=== PATIENT | male | born 1945 ===

== ENCOUNTER 2025-04-04 13:51 | Observation (INO) ==
--- NOTE | 2025-04-04 15:02 | DR.WEAKNES ---
HPI Time Seen Time Seen by Provider: 04/04/25 15:00 Primary Care Physician Primary Care Physician: Dr. Dewey Aleman Complaints Chief Complaint Doctors Comments: 79 yo M, hx of parkinsons, brought in by and daughter after they noticed Pt limping and "dragging" his RLE throughout the day yest. Onset 31h [employer]. Pt states he didn't notice the deficit. Chief Complaint:: Pt's states that two days ago pt woke up with bilateral lower extremity weakness. Pt was able to participate in his outpatient physical therapy. Yesterday pt woke up with the smae weakness but was dragging his right leg. Pt's denies that pt has had any other deficits.Pt denies any pain. Source History Provided: Family Member Mode of Arrival Mode of Arrival: Ambulatory Timing Onset of Chief Complaint: 04/02/25 Symptom Onset: Known (upon waking yesterday morning) Context Stroke Symptoms: Weakness of limb (RLE) PMH PMH Past Medical History: Yes Past Medical History: Depression, Dialysis and Hypertension Past Medical History Comment: alzheimers, parkinsons Past Surgical History: Yes Surgical History: Other Past Surgical History Comment: prostates ablation, right shoulder surger Family History History of Family Medical Conditions: Yes Family Medical History: Diabetes Mellitus Family Medical History Comment: dementia Social History Does patient currently use any type of tobacco product: No Have you used tobacco products in the last 12 months: No Type of Tobacco Use: None Does any household member use tobacco: No Alcohol Use: DAILY Do you use any recreational Drugs:: No Lives With: Spouse Lives Where: Home Travel Risk Coronavirus risk:travel/contact w/high risk person: No Has patient experienced Coronavirus symptoms: No Infectious screening In the last 2 months have you had wt loss of >10#?: NO Have you had fever, night sweats or hemotysis?: No Have you traveled outside the country in the last 6 months?: No Isolation: Standard ROS Review of Systems Musculoskeletal: Other (RLE weakness) All Other Systems: Reviewed and Negative PE Vital Signs Vitals: Vital Signs Temperature 98.1 F Pulse Rate 54 Pulse Rate 53 Pulse Rate 53 Pulse Rate 52 Pulse Rate 53 Pulse Rate 53 Pulse Rate 50 Pulse Rate 58 Pulse Rate 58 Pulse Rate 57 Pulse Rate 54 Pulse Rate 56 Pulse Rate 66 Pulse Rate 58 Respiratory Rate 14 Respiratory Rate 12 Respiratory Rate 14 Respiratory Rate 14 Respiratory Rate 15 Respiratory Rate 14 Respiratory Rate 22 Respiratory Rate 28 Respiratory Rate 14 Respiratory Rate 14 Respiratory Rate 19 Respiratory Rate 18 Blood Pressure 182/82 Blood Pressure 151/74 Blood Pressure 150/76 Blood Pressure 163/77 Blood Pressure 158/77 Blood Pressure 172/81 Blood Pressure 172/77 Blood Pressure 141/74 Blood Pressure 153/72 Blood Pressure 148/64 Blood Pressure 154/69 Blood Pressure 163/74 O2 Sat by Pulse Oximetry 99 O2 Sat by Pulse Oximetry 100 O2 Sat by Pulse Oximetry 98 O2 Sat by Pulse Oximetry 99 O2 Sat by Pulse Oximetry 100 O2 Sat by Pulse Oximetry 100 O2 Sat by Pulse Oximetry 100 O2 Sat by Pulse Oximetry 100 O2 Sat by Pulse Oximetry 98 O2 Sat by Pulse Oximetry 99 O2 Sat by Pulse Oximetry 99 O2 Sat by Pulse Oximetry 99 O2 Sat by Pulse Oximetry 99 General Limitations: No Limitations General Appearance: Alert and In No Apparent Distress Head Head Exam: Normal Inspection Eyes Eye exam: Normal Appearance Eyelids: Normal Inspection: Bilateral Pupils: Regular, Round: Bilateral Sclera/Conjunctival: Normal Inspection: Bilateral Anterior Chamber: Normal Inspection: Bilateral ENT ENT Exam: Normal Exam Mouth Exam: Normal Inspection Throat Exam: Normal Inspection Neck Neck Exam: Normal Inspection Chest Chest Inspection: Normal Inspection Respiratory Respiratory Exam: Normal Lung Sounds Bilat Respiratory Exam: Bilateral: Clear to Auscultation Cardiovascular Cardiovascular Exam: Regular Rate and Normal Rhythm Abdominal Exam Abdominal Exam: Normal Inspection, Normal Bowel Sounds and Soft Extremities Extremities Exam: Normal Inspection and Full ROM Back Back Exam: Normal Inspection Neurologic Neurological Exam: Alert and Oriented X3 Motor Strength - LUE: 5/5 Motor Strength - RUE: 4/5 (parkinsons-type tremor present) Motor Strength - LLE: 5/5 Motor Strength - RLE: 4/5 Psychiatric Psychiatric Exam: Normal Affect and Normal Mood Skin Skin Exam: Warm, Dry, Intact and Normal Color ROR Labs Reviewed 04/04/25 15:23 04/04/25 15:23 Laboratory: WBC 10.9 X10^3/uL (3.6-10.0) H 04/04/25 15:23 RBC 4.50 X10^6/uL (4.7-6.0) L 04/04/25 15:23 Hgb 15.3 g/dL (13.5-18.0) 04/04/25 15:23 Hct 44.6 % (42.0-54.0) 04/04/25 15:23 MCV 99.1 fL (80.0-100.0) 04/04/25 15:23 MCH 34.0 pg (27.0-34.0) 04/04/25 15:23 MCHC 34.4 g/dL (33.0-35.0) 04/04/25 15:23 RDW 13.4 % (11.6-16.5) 04/04/25 15:23 Plt Count 251 X10^3/uL (150.0-450.0) 04/04/25 15:23 MPV 7.5 fL (7.4-11.0) 04/04/25 15:23 Neut % (Auto) 65.9 % (42.0-75.0) 04/04/25 15:23 Lymph % (Auto) 18.0 % (21.0-51.0) L 04/04/25 15:23 [place] % (Auto) 14.1 % (0.0-13.0) H 04/04/25 15:23 Eos % (Auto) 1.5 % (0.9-2.9) 04/04/25 15:23 Baso % (Auto) 0.5 % (0.2-1.0) 04/04/25 15:23 Neut # (Auto) 7.2 x10^3/uL (2.2-4.8) H 04/04/25 15:23 Lymph # (Auto) 2.0 X10^3/uL (1.3-2.9) 04/04/25 15:23 [place] # (Auto) 1.5 x10^3/uL (0.3-0.8) H 04/04/25 15:23 Eos # (Auto) 0.2 x10^3/uL (0.0-0.2) 04/04/25 15:23 Baso # (Auto) 0.1 X10^3/uL (0.0-0.1) 04/04/25 15:23 Absolute Nucleated RBC 0.0 /100WBC 04/04/25 15:23 PT 13.9 SECONDS (11.8-14.3) 04/04/25 15:23 INR Target Range - 04/04/25 15:23 INR 1.06 (0.8-1.3) 04/04/25 15:23 APTT 28.3 SECONDS (22.9-36.5) 04/04/25 15:23 PTT Comment - 04/04/25 15:23 Sodium 141 mmol/L (136-145) 04/04/25 15:23 Corrected Sodium 142 mmol/L (136-145) 04/04/25 15:23 Potassium 4.0 mmol/L (3.5-5.1) 04/04/25 15:23 Chloride 102 mmol/L (98-107) 04/04/25 15:23 Carbon Dioxide 35.4 mmol/L (21-32) H 04/04/25 15:23 BUN 12 mg/dL (7-18) 04/04/25 15:23 Creatinine 0.93 mg/dL (0.70-1.30) 04/04/25 15:23 Est GFR (MDRD) Af Amer > 60 (>60) 04/04/25 15:23 Est GFR (MDRD) Non-Af > 60 (>60) 04/04/25 15:23 Glucose 125 mg/dL (65-99) H 04/04/25 15:23 Calcium 8.9 mg/dL (8.5-10.1) 04/04/25 15:23 Corrected Calcium TNP 04/04/25 15:23 Magnesium 2.5 mg/dL (2.0-2.9) 04/04/25 15:23 Total Bilirubin 0.30 mg/dL (0.2-1.0) 04/04/25 15:23 AST 12 Units/L (15-37) L 04/04/25 15:23 ALT 28 Units/L (12-78) 04/04/25 15:23 Alkaline Phosphatase 125 Units/L (46-116) H 04/04/25 15:23 Creatine Kinase 106 Units/L (39-308) 04/04/25 15:23 Troponin I High Sens 5.0 ng/L (4.0-60.0) 04/04/25 15:23 Total Protein 7.3 g/dL (6.4-8.2) 04/04/25 15:23 Albumin 3.7 g/dL (3.4-5.0) 04/04/25 15:23 Globulin 3.6 g/dL (2.5-4.5) 04/04/25 15:23 Albumin/Globulin Ratio 1.0 Ratio (1.1-2.1) L 04/04/25 15:23 Opioid Opioid Risk Tool Age (Ke[place] box if 16-45): No History of Preadolescent Sexual Abuse: No Total: 0 Total Score Risk Category: Low Risk Copyright: Paul GASTON predicting aberrant behaviors Discharge Plan Diagnosis Discharge Problem: Acute ischemic stroke, Acute right-sided weakness Discharge Plan Patient Disposition: ADMITTED INPATIENT Condition: Stable Prescriptions: No Action rivastigmine 4.6 mg/24 hour patch 24 hour 1 patch transdermal DAILY Patient Comments: PLEASE SEE ATTACHED FOR DETAILED DIRECTIONS Janumet XR 50-500 mg tablet, ER multiphase 24 hr 1 tab PO QDAY losartan 50 mg Tablet 50 mg PO QDAY sertraline 50 mg tablet 50 mg PO QDAY Health Concerns: Post Hospitalization: new medications and changes needed to prevent readmission or further decline. Pt educated and given instructions on all concerns. Plan of Treatment: Continue with present treatment and follow up plan. Pt is to keep follow up appointment as instructed and take medications as ordered. Orders to Discharge Patient Discharge Orders: Transfer (Routine); Ordered 04/04/25 Ordered By: Joni Leos Follow ups/Referrals Follow ups/Referrals: [facility] [Primary Care Provider] - 3 days Instructions Stand Alone Forms: Find Help Web Site, Post Hospital Follow Up Care Print Language: THAI
--- NOTE | 2025-04-04 15:24 | EKG ---
Test Reason : CVA Blood Pressure : */* mmHG Vent. Rate : 59 BPM Atrial Rate : 59 BPM P-R Int : 188 ms QRS Dur : 148 ms QT Int : 474 ms P-R-T Axes : 62 39 33 degrees QTc Int : 469 ms Sinus bradycardia Right bundle branch block Abnormal ECG When compared with ECG of 30-DEC-2023 12:56, No significant change was found Confirmed by Rajesh Vale MD ([id number]) on 04/05/2025 5:37:31 AM Referred By: Confirmed By: Rajesh Vale MD
[2025-04-04 15:38] LABS: MEAN PLATELET VOLUME 7.5 fL (7.4-11.0); RED CELL DISTRIBUTION WIDTH 13.4 % (11.6-16.5)
--- NOTE | 2025-04-04 15:42 | CT ---
EXAMINATION: BRAIN W/O CON HISTORY: r sided weakness, dragging right foot ; COMPARISON: CT brain 12/30/2023 TECHNIQUE: Contiguous noncontrast axial CT images of the brain. Images reviewed in the axial imaging plane with reformatted sagittal and coronal images.The above CT scan was done with automated exposure control and the mA and kV was adjusted to obtain quality images according to patient size. FINDINGS: No evidence of acute intracranial hemorrhage, mass effect, or midline shift. 1.2 x 0.7 cm focal area of decreased density left thalamus consistent with nonhemorrhagic lacunar type infarct age indeterminate. Moderate diffuse brain parenchyma atrophy. [id number] dilatation of the lateral ventricles bilaterally without acute mass effect. Generalized decreased density to the deep white matter adjacent to the lateral ventricles and centrum semiovale regions bilaterally without associated mass effect. Consider chronic ischemic white matter changes from small vessel disease or other cause of gliosis. The calvarium appears intact. Moderate thickening of the mucosa along the stoll of the imaged right upper to mid maxillary sinus with air-fluid level. The inferior maxillary sinuses were not included on the images. Arterial vascular calcifications base of the brain. IMPRESSION: No evidence of acute intracranial hemorrhage or mass effect. 1.2 cm focal area of decreased density left thalamus consistent with nonhemorrhagic lacunar type infarct age indeterminate. Recommend further evaluation with an MRI of the brain. Other chronic appearing brain parenchymal changes. Right maxillary sinus disease. THIS IS AN ELECTRONICALLY VERIFIED FINAL REPORT 04/04/2025 3:38 PM - Electronically signed by Che Wesley MD
[2025-04-04 15:45] LABS: INR 1.06 (0.8-1.3)
[2025-04-04 15:55] LABS: COR NA(FOR HYPERGLY) 142 mmol/L (136-145); CREATININE 0.93 mg/dL (0.70-1.30); eGFR NON BLACK RACES > 60 (>60)
[2025-04-04] MEDS ORDERED: NORCO 5/325 MG TAB PO PRN (17:11)
[2025-04-04] MEDS ORDERED: ZOFRAN TAB 4 MG PO PRN (17:11)
[2025-04-04] MEDS ORDERED: ZOFRAN INJ 4 MG VIAL IVP PRN (17:11)
[2025-04-04] MEDS ORDERED: MORPHINE SULFATE INJ 2 MG INJ IVP PRN (17:11)
[2025-04-04] MEDS ORDERED: ULTRAM PO PRN (17:11)
[2025-04-04] MEDS ORDERED: TYLENOL 325 MG TAB PO PRN (17:11)
[2025-04-04] MEDS: NS 1,000 ML IV 1,000 ML IV SCH (17:36)
[2025-04-04 17:48] VITALS: BMI 25.1
[2025-04-04] MEDS: COLACE CAP 100 MG PO SCH (20:50)
--- NOTE | 2025-04-04 23:55 | RAD ---
EXAM: CHEST, PA/LAT ADULT HISTORY: sob ; COMPARISON: 024 FINDINGS: The trachea is midline. The cardiac silhouette is unremarkable . The lungs are clear without focal infiltrate or effusion. The bony thorax is unremarkable. IMPRESSION: No acute cardiopulmonary disease. THIS IS AN ELECTRONICALLY VERIFIED FINAL REPORT 04/04/2025 11:52 PM - Electronically signed by En Aden MD
[2025-04-05 05:51] LABS: MEAN PLATELET VOLUME 7.7 fL (7.4-11.0); RED CELL DISTRIBUTION WIDTH 13.3 % (11.6-16.5)
[2025-04-05 06:05] LABS: CHOL/HDL RATIO 3.2 (0.0-5.0); COR CA(FOR HYPOALB) 9.1 mg/dL (8.5-10.1); COR NA(FOR HYPERGLY) 143 mmol/L (136-145); CREATININE 0.84 mg/dL (0.70-1.30); eGFR NON BLACK RACES > 60 (>60)
[2025-04-05 08:11] VITALS: RESP 18
[2025-04-05] MEDS: GLUCOPHAGE XR 24-HR PO SCH (08:38)
[2025-04-05] MEDS: JANUVIA PO SCH (08:38)
[2025-04-05] MEDS: ZOLOFT PO SCH (08:38)
[2025-04-05] MEDS: COZAAR PO SCH (08:38)
[2025-04-05] MEDS ORDERED: METFORMIN PO SCH (09:00)
[2025-04-05] MEDS ORDERED: [UNRECOGNIZED DRUG - OTHER] PO SCH (09:00)
[2025-04-05] MEDS ORDERED: SITAGLIPTIN PO SCH (09:00)
[2025-04-05] MEDS: PHARMACY CONSULT XX SCH (09:35)
[2025-04-05] MEDS: ACTOS PO SCH (09:53)
[2025-04-05] MEDS: ASPIRIN PO SCH (09:53)
[2025-04-05] MEDS: EXELON PATCH TD SCH (09:54)
[2025-04-05] MEDS: CONSULT PHARMACY - POTASSIUM & MAGNESIUM XX SCH (10:04)
--- NOTE | 2025-04-05 10:43 | VAS ---
EXAM: CAROTID US HISTORY: R-sided weakness; ACUTE CVA, RT SIDED WEAKNESS . COMPARISON: None. TECHNIQUE: Ultrasound of the carotid arteries was performed. Color and spectral doppler imaging was utilized. Subjective analysis from ordonez-scale and color flow imaging was used to estimate degree of stenosis. Velocity measurements with ICA / CCA ratios were also utilized. FINDINGS: RIGHT: There is mild eccentric atherosclerotic plaque at the carotid bifurcation. Velocity measurements are obtained and show peak systolic velocity in the ICA is 68 cm/sec. ICA/CCA ratio is calculated at 0.9. Velocity parameters and subjective analysis correlate with estimated degree of stenosis of choose 1. LEFT: There is mild eccentric atherosclerotic plaque at the carotid bifurcation. Velocity measurements are obtained and show peak systolic velocity in the ICA is 45 cm/sec. ICA/CCA ratio is calculated at 0.8. Velocity parameters and subjective analysis correlate with estimated degree of stenosis of VERTEBRAL ARTERIES: Antegrade flow is seen bilaterally. IMPRESSION: 1. No hemodynamically significant carotid artery stenosis. 2. Antegrade vertebral artery flow. THIS IS AN ELECTRONICALLY VERIFIED FINAL REPORT 04/05/2025 10:40 AM - Electronically signed by Percy Neff MD
[2025-04-05 11:49] VITALS: BP 146/80; PULSE 60; TEMP 97.4; O2SAT 97
--- NOTE | 2025-04-05 15:21 | MRI ---
EXAM: BRAIN W/O CON HISTORY: RLE WEAKNESS, L THALAMUS HYPODENSITY/ PT HAS HX OF STROKE/ FAST BRAIN PROTOCOL RAN DUE TO PATIENT CONDITION (PARKINSON'S) ; COMPARISON: CT from yesterday TECHNIQUE: Multiplanar multi-sequence MRI of the brain was obtained utilizing standard departmental protocol. Sagittal and axial T1 weighted images were obtained. Axial T2 and flair weighted images were performed as well. Axial diffusion weighted and ADC trace mapping was performed. FINDINGS: The midline structures appear unremarkable. The evaluation of the brain parenchyma demonstrates no abnormal signal characteristics to suggest intraparenchymal mass or hemorrhage. No extra-axial fluid collections are observed. The ventricular system appears symmetric and nondilated. The CP angle is normal in its appearance without brainstem mass or evidence for acoustic neuroma. The flow voids on both T1 and T2 weighted imaging appear unremarkable. Evaluation of the diffusion weighted imaging demonstrates a subacute stroke in the left thalamus. There are extensive small-vessel ischemic changes along with cortical atrophy.. The extracranial structures are unremarkable. IMPRESSION: Subacute left thalamic infarct as above. THIS IS AN ELECTRONICALLY VERIFIED FINAL REPORT 04/05/2025 3:18 PM - Electronically signed by Amador Cast MD
== END 2025-04-05 15:35 | disposition home or self-care (01) ==
LOC: ER 13:51 → MED/SURG 13:51
PROVIDERS: ADMIT Obstetrics & Gynecology Obstetrics; ATTEND Obstetrics & Gynecology Obstetrics
DX: R00.1 Bradycardia, unspecified; G30.8 Other Alzheimer's disease; F32.89 Other specified depressive episodes; I63.89 Other cerebral infarction; I10 Essential (primary) hypertension; R94.31 Abnormal electrocardiogram [ECG] [EKG]; R06.2 Wheezing; G20.A1 Parkinson's disease without dyskinesia, without mention of fluctuations; Z99.2 Dependence on renal dialysis; J01.00 Acute maxillary sinusitis, unspecified; M62.81 Muscle weakness (generalized); F02.80 Dementia in other diseases classified elsewhere, unspecified severity, without behavioral disturbance, psychotic disturbance, mood disturbance, and anxiety; E11.65 Type 2 diabetes mellitus with hyperglycemia; R26.89 Other abnormalities of gait and mobility